=== PATIENT | male | born 1980 | race Caucasian/White ===

== ENCOUNTER 2020-09-28 23:27 | Emergency (ER) | payer BC ==
[2020-09-28] MEDS ORDERED: levETIRAcetam 1,000 MG in Sodium Chloride 0.9% 100 ML IV STA (23:36)
[2020-09-28] MEDS ORDERED: LORazepam 2 MG/ML SDV IVPUSH STA (23:36)
[2020-09-28] MEDS ORDERED: Dextrose 5%-0.9% NaCl 1,000 ML IV SCH (23:45)
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
[2020-09-29] MEDS ORDERED: Ondansetron 4 MG Tab.DIS PO ONE (01:33)
== END 2020-09-29 01:45 | disposition home or self-care (01) ==
LOC: JD.ED 23:27
DX: G40.409 Other generalized epilepsy and epileptic syndromes, not intractable, without status epilepticus (principal); R00.0 Tachycardia, unspecified; D72.829 Elevated white blood cell count, unspecified
CPT/HCPCS: 36415; 80053; 80307; 83735; 84100; 85007; 85027; 96365; 96375; 99284; A9270; J1953; J2060; J7042